=== PATIENT | female | born 1985 ===

== ENCOUNTER 2018-04-20 04:29 | Inpatient (IN) | payer MEDICAID ==
[2018-04-20 05:13] VITALS: BMI 36.7
[2018-04-20] MEDS ORDERED: Nalbuphine HCL 10 mg/ml Ampule IVP PRN (05:14)
[2018-04-20] MEDS: Lactated Ringer's 1,000 ML IV SCH ×4 (07:30→18:44)
[2018-04-20] MEDS ORDERED: Penicillin G Potassium 5 MU in Sodium Chloride 0.9% 50 ML IVPB ONE (08:16)
[2018-04-20 08:28] LABS: BASO % 0.3 % (0.0-2.0); HEMOGLOBIN 13.4 g/dL (12.0-16.0); LYMPH # 1.6 K/uL (1.0-4.3); MEAN CELL VOLUME 93.1 fl (81.0-99.0); MEAN CORPUSCULAR HEMOGLOBIN 31.8 pg (27.0-31.0); MEAN CORPUSCULAR HGB CONC 34.1 g/dL (33.0-37.0); MEAN PLATELET VOLUME 11.4 fl (7.2-11.7); MONO # 0.7 K/uL (0.0-0.8); MONO % 5.1 % (0.0-10.0); NEUT # 12.1 K/uL (1.8-7.0); NEUT % 83.6 % (50.0-75.0); RBC 4.2 Mil/uL (3.80-5.20); RED CELL DISTRIBUTION WIDTH 14.7 % (11.5-14.5); WHITE BLOOD COUNT 14.5 K/uL (4.8-10.8)
[2018-04-20] MEDS ORDERED: Oxytocin 30 units/LR 500ML 30 U/500 ML BAG IV ONE (08:28)
[2018-04-20] MEDS ORDERED: Penicillin G 5 Million Unit Vial IVPB ONE (08:33)
[2018-04-20] MEDS ORDERED: Oxytocin 30 UNITS in Sodium Chloride 0.9% 500 ML IV ONE (08:45)
[2018-04-20] MEDS ORDERED: Fentanyl/Bupivacaine HCl 250 ML EPI ONE (09:29)
[2018-04-20] MEDS ORDERED: Benzocaine/Menthol SPRAY TOP PRN ×2 (18:07→21:49)
[2018-04-20] MEDS ORDERED: Oxycodone/Acetaminophen 5/325 mg Tab PO PRN ×2 (18:07→21:49)
--- NOTE | 2018-04-20 18:26 | OBDS ---
DELIVERY PERSONNEL Delivery Doctor: Naima Hernandez MD Resident: Sreedhar Lees MD MATERNAL INFORMATION Delivery Anesthesia: Epidural (Annotations: Data stored by CPN on behalf of user) Medications in Delivery: Pitocin Estimated Blood Loss (ml): 150 Placenta Cultured: No Provider Comments: dx:38.5wk; labor; thick meconeum procedure: ; repair of 1st degree lacer w/ 3-0 vicryl; plac delivered spontaneoulsy and intackt ob: o[place]etos pgy1: ivan dowling findings: thick mecon; viable male; apgr 6/9; wt 6lb4oz; path: plac to path; cord blood colleted pt and neon remained in br LABOR SUMMARY EDC: 04/29/2018 00:00 No. Babies in Womb: 1 Attempted: No Labor Anesthesia: Epidural LABOR INFORMATION Reason for Induction: Not Applicable Onset of Labor: 04/20/2018 02:00 Complete Dilatation: 04/20/2018 16:00 Oxytocin: N/A Group B Beta Strep: Positive Antibiotics # of Doses: 2 Antibiotics Time of Last Dose: 16:15 Steroids Given: None Reason Steroids Not Administered: Not Applicable Other Reason Not Administered: Not required MEMBRANES Membranes Rupture Method: Spontaneous Rupture of Membranes: 04/20/2018 13:15 Length of Rupture (hrs): 4.42 Amniotic Fluid Color: Light Meconium Amniotic Fluid Amount: Small Amniotic Fluid Odor: Normal STAGES OF LABOR Stage 1 hrs: 14 Stage 1 min: 0 Stage 2 hrs: 1 Stage 2 min: 40 Stage 3 hrs: 0 Stage 3 min: 15 Total Time in Labor hrs: 15 Total Time in Labor min: 55 VAGINAL DELIVERY Episiotomy: None Laceration Extension: First Degree Laceration Type: Perineal Laceration Repair: Yes Laceration Repair Note: repaired w/ 3-0vicryl Initial Vag Sponge Count: 5 Final Vag Sponge Count: 5 Initial Vag Sharps Count: 1 Final Vag Sharps Count: 1 Sponge Count Correct: Yes Sharps Count Correct: Yes BABY A INFORMATION Infant Delivery Date/Time: 04/20/2018 17:40 Method of Delivery: Vaginal Born in Route : No : N/A Forceps: Outlet Vacuum Extraction: N/A Shoulder Dystocia : No SHOULDER DYSTOCIA BABY A Infant Delivery Date/Time: 04/20/2018 17:40 PRESENTATION/POSITION BABY A Presentation: Cephalic Cephalic Presentation: Vertex Vertex Position: Left Occipital Anterior Breech Presentation: N/A PLACENTA INFORMATION BABY A Placenta Delivery Time : 04/20/2018 17:55 Placenta Method of Delivery: Spontaneous Placenta Status: Delivered SCORES BABY A Heart Rate 1 min: Slow, Below 100 bpm Resp Effort 1 min: Slow, Irregular Reflex Irritability 1 min: Cough or Sneeze or Pulls Away Muscle Tone 1 min: Some Flexion of Extremities Color 1 min: Body [place], Extremities Blue Resuscitation Effort 1 min: Tactile Stimulation; Oxygen SCORE 1 MIN: 6 Heart Rate 5 min: >100 bpm Resp Effort 5 min: Good Cry Reflex Irritability 5 min: Cough or Sneeze or Pulls Away Muscle Tone 5 min: Active Motion Color 5 min: Body [place], Extremities Blue Resuscitation Effort 5 min: N/A SCORE 5 MIN: 9 INFANT INFORMATION BABY A Gestational Age at Delivery: 38.0 Gestational Status: Term Infant Outcome : Liveborn Infant Condition : Stable Infant Sex: Male WEIGHT/LENGTH BABY A Infant Birthweight (gms): 2840 Infant Weight (lb): 6 Weight (oz): 4 CORD INFORMATION BABY A No. Cord Vessels: 3 Nuchal Cord : N/A Cord Blood Taken: No Infant Suction: Mouth; Nose
[2018-04-21 06:40] LABS: BASO % 0.3 % (0.0-2.0); EOS % 0.2 % (0.0-4.0); HEMOGLOBIN 11.6 g/dL (12.0-16.0); LYMPH # 2.5 K/uL (1.0-4.3); LYMPH % 21.9 % (20.0-40.0); MEAN CELL VOLUME 93.7 fl (81.0-99.0); MEAN CORPUSCULAR HEMOGLOBIN 31.8 pg (27.0-31.0); MEAN PLATELET VOLUME 10.6 fl (7.2-11.7); MONO # 0.8 K/uL (0.0-0.8); MONO % 7.5 % (0.0-10.0); NEUT # 7.8 K/uL (1.8-7.0); NEUT % 70.1 % (50.0-75.0); NRBC % 0.1 % (0.0-0.0); RBC 3.66 Mil/uL (3.80-5.20); RED CELL DISTRIBUTION WIDTH 14.7 % (11.5-14.5); WHITE BLOOD COUNT 11.2 K/uL (4.8-10.8)
--- NOTE | 2018-04-21 07:09 | OBPPN ---
Datetime: 04/21/2018 07:04 PP Pain Prov: Within normal limits PP Abdomen/Uterus Prov: Normal PP Lochia Prov: Normal PP Progress Prov: Normal PP Impression Prov: Normal progression PP Plan Prov: Continue present management PP Progress Note Prov: PPD 1 s/p , doing well, breast and bottle feeding Pt c/o low back pain Rec motrin for pain Vital Signs Provider PP: Reviewed; Within Normal Limits
--- NOTE | 2018-04-21 11:19 | OBHP ---
Datetime: 04/20/2018 07:42 IP Adm Impression: Term, intrauterine IP Admit Plan: Observation/Evaluation Admit Comment, IP Provider: Paola: [id number] Pt is a 32 yo 38.5wk [place] 04/29/18 based on pts recollection, here for contractions that started friday morning they were 10 mins apart now they are every 3-5 mins, Patient is GBS +. Denies any vag inal bleeding or LOF. States baby has good movement. Pt is a [facility] pt. Does compl ain of some dizziness, blurry vision, and nausea. BP is 131/74. 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 PGY-1 Patient seen and case discussed with Dr. Andrade ob attending addendum: pt seen _ examined by me. agree w/ assessement and plan. Pelvic Type - PN: Adequate Extremities - PN: Normal Abdomen - PN: Normal Lungs - PN: Normal Heart - PN: Normal Neurologic - PN: Normal HEENT - PN: Normal General - PN: Normal FHR - Baseline A Provider: 130-40's IP Hx Assessment: The History has been Reviewed and is Current EGA AdmitDate IP: 38.5 Vital Signs Provider: Reviewed IP Chief Complaint: Uterine contractions NICHD Variability Prov Fetus A: Moderate 6-25bpm NICHD Accel Fetus A IP Provider: [id number] FHR Category Provider Fetus A: Category I NICHD Decel Fetus A IP Provider: None Dilatation, Provider: 1 Genitourinary Exam: Normal
--- NOTE | 2018-04-21 11:24 | OBADHP ---
Datetime: 04/20/2018 08:22 Admit Comment, IP Provider: Pt is a 32 yo 38.5wk [place] 04/29/18 based on pts recollection, here for contractions that started friday morning they were 10 mins apart now they are every 3-5 mins, Patien t is GBS +. Denies any vaginal bleeding or LOF. States baby has good movement. Pt is a [facility] pt. Does complain of some dizziness, blurry vision, and nausea. BP is 131/74. OBHx: Denies any complications with current Rn Transfer Hx: Denies abnormal pap smears PNL: GBS +, ABO: O+, all others unremarkable PMHx: None Meds: Prenatals- however stopped them last week because she hasnt picked them up from the pharmacy Allergies: NKDA FamHx: Uterine Cancer- Mom Social Hx: Denies smoking, drug use or alcohol Surg Hx: None A/P 38.5 wk IUP Active Labor P: admit Pelvic Type - PN: Adequate Extremities - PN: Normal Abdomen - PN: Normal Lungs - PN: Normal Heart - PN: Normal Neurologic - PN: Normal HEENT - PN: Normal General - PN: Normal Presentation-Admit: Vertex IP Chief Complaint: Uterine contractions NICHD Variability Prov Fetus A: Moderate 6-25bpm FHR Category Provider Fetus A: Category I NICHD Decel Fetus A IP Provider: None Dilatation, Provider: 4 Genitourinary Exam: Normal EGA AdmitDate IP: 38.5 IP Adm Impression: Term, intrauterine IP Admit Plan: Admit to unit; Initiate labor protocol Datetime: 04/20/2018 07:42 FHR - Baseline A Provider: 130-40's IP Hx Assessment: The History has been Reviewed and is Current Vital Signs Provider: Reviewed NICHD Accel Fetus A IP Provider: [id number]
--- NOTE | 2018-04-22 10:19 | OBDCSUM ---
Datetime: 04/22/2018 07:39 Discharged to, Provider: Home Follow up at, Provider: Tam Champion Instr Activity: Normal activity Disch Instr Diet: Regular Discharge Instructions, Provider: Routine instructions given Discharge Diagnosis, Provider: Term Delivered Discharge Time: 04/22/2018 07:39 Follow up in weeks, Provider: 4-6 wks Disch Referrals: None Contraception discussed, Prov: Yes Disch Activity Restrictions: No exercising; No lifting; Minimize stair-climbing; No sexual activity; Nothing in vagina - [place], tampons, douche Discharge Comment, Provider: Discharge Instructions: 1. Encouraged and ambulation 2. vitamin 1 tab po daily 3. Ibuprofen 600mg 1 tab as needed for mild pain 4. ER precautions: If excessive bleeding or fever without relief from medication, go to ED 5. Avoid stairs, exercising, heavy lifting 6. Nothing in vagina for 4-6weeks 7. Contraception post D/C- Unsure 8. F/U at [facility] in 4-6 weeks for post- visit The patient was seen with the resident I agree with the note Contraception after Delivery: Undecided
--- NOTE | 2018-04-22 10:19 | OBPPN ---
Datetime: 04/22/2018 07:36 PP Pain Prov: Within normal limits PP Nausea Prov: Denies PP Flatus Prov: Yes PP BM Prov: Yes PP Heart Prov: Normal PP Lungs Prov: Normal PP Abdomen/Uterus Prov: Normal PP Lochia Prov: Normal PP Extremities Prov: Normal PP C/S Incision Prov: Not Applicable PP Progress Prov: Abnormal PP Impression Prov: Normal progression; difficulties PP Plan Prov: Continue present management; consult PP Impression Other Prov: consulted- baby wont latch needs breast pump PP Progress Note Prov: Cyra: [id number] S: Pt is a 32 yo 38.5 wk s/p on 04/20/18 PPD 2. Seen and examined at bedside this am. Rick cisneros denies any significant overnight events. Reports mild pelvic pain which is controlled with pain medicine. OOB/Ambulation well without dizziness. Breast/Bottle feeding without difficulty. Tolerati ng regular diet. Lochia is similar to menses. Voiding freely with no blood noted, Patient has had a b owel movement, and is passing gas per rectum. Denies fever/chills, diarrhea, nausea/vomiting, CP/SOB , Lightheadedness. O: BP:121/77, HR:92, T98.8F CBC-11.6/34.2, blood type: O+, rubella: Immune PHYSICAL EXAM: GEN: AAOx3, Resting comfortably in bed, NAD HEENT: NCAT, White sclera, pink conjunctiva, oral mucosa moist. LUNGS: CTA B/L, no wheezing, rhonchi, or rales, B/L chest rise CVS: RRR, S1, S2, No murmurs, rubs, gallops ABD: ND, +BS, firm fundus @ umbilical level. Soft, appropriate TTP EXT: no edema, negative Dioni's sign, calves non tender NEURO/Psych: no gross focal deficit, preserved affect and mood. A/P 32 y/o post , had a on 04/20/18 @ 17:40. Pt afebrile, tolerating pain with medicati on, tolerating regular diet, adequate urine output. Encouraged breast feeding- baby wont latch, breast pump wasnt given, consulted with b loc D/C and encouraged ambulation Ibuprofen 600mg mild pain PNV 1 tab po daily Post op contraception- unsure F/U 4-6 weeks for post- visit with [facility] Fabiola Jordan M.D. PGY-1 Patient was seen and case discussed with Dr. Garrison The patient was seen with the resident I agree with the note IP PP Procedures: None Vital Signs Provider PP: Reviewed; Within Normal Limits
[2018-04-23 02:08] VITALS: BP 121/77; PULSE 92; RESP 20; TEMP 98.8; O2SAT 99
== END 2018-04-22 13:45 | disposition home or self-care (01) | DRG 373 ==
LOC: H.EROB2 04:29 → H.L&D 08:07 → H.OB/GYN 21:17
PROVIDERS: ADMIT Obstetrics & Gynecology; ATTEND Obstetrics & Gynecology
PROC: 10E0XZZ Delivery of Products of Conception, External Approach (ICD-10-PCS; principal; 2018-04-20)
PROC: 0HQ9XZZ Repair Perineum Skin, External Approach (ICD-10-PCS; 2018-04-20)
DX: O70.0 First degree perineal laceration during delivery (principal); O99.824 Streptococcus B carrier state complicating childbirth; Z37.0 Single live birth; Z3A.38 38 weeks gestation of pregnancy